=== PATIENT | male | born 1980 | race Caucasian/White ===

== ENCOUNTER 2018-02-09 21:27 | Emergency (ER) | payer OTHER ==
[~2018-02-09] VITALS: Ht 185.4 cm; Wt 72.6 kg
[2018-02-09] MEDS ORDERED: AMOXICILLIN 50500 M1 PO (22:40)
== END 2018-02-09 23:00 | disposition home or self-care (01) ==
LOC: ER 21:27
DX: H66.93 Otitis media, unspecified, bilateral (principal)